=== PATIENT | male | born 1975 | race Two or more races ===

== ENCOUNTER 2018-07-24 20:33 | Emergency (ER) | payer SELFPAY ==
[~2018-07-24] VITALS: Ht 182.9 cm; Wt 95.7 kg
[2018-07-24] MEDS ORDERED: methylPREDNISolone SOD SUCC 125 MG/2ML VIAL IV ONE (22:30)
[2018-07-24] MEDS ORDERED: ALBUTEROL FS 2.5 MG/3 ML VIAL.NEB CONTNEB ONE (22:30)
[2018-07-24] MEDS ORDERED: IPRATROPIUM NEB FS 0.5 MG/2.5 ML AMPUL.NEB NEB ONE (22:30)
[2018-07-24] MEDS ORDERED: methylPREDNISolone SOD SUCC 125 MG/2ML VIAL ONE (22:32)
--- NOTE | 2018-07-24 22:35 | NUR ---
BIB SELF FROM HOME. AAOX4. AMBULATORY. C/O SOB X 2WEEKS WITH NON PRODUCTIVE COUGH. PT TO ER BED 11. PLACED ON PULSE OX. AWAITING MD FOR EVAL.
[2018-07-24] MEDS ORDERED: ALBUTEROL FS 2.5 MG/3 ML VIAL.NEB ONE (22:37)
[2018-07-24] MEDS ORDERED: IPRATROPIUM NEB FS 0.5 MG/2.5 ML AMPUL.NEB ONE (22:37)
[2018-07-25 01:19] VITALS: BP 151/96
--- NOTE | 2018-07-25 01:19 | NUR ---
Patient discharged to home in stable condition. Written and verbal after care instructions given. Patient verbalizes understanding of instruction.IV removed. Catheter intact and site benign. Pressure and 4x4 applied to site. No bleeding noted.Pt ambulatory with a steady gait
== END 2018-07-25 01:21 | disposition home or self-care (01) ==
LOC: ER 20:46
DX: J45.901 Unspecified asthma with (acute) exacerbation (principal); R94.31 Abnormal electrocardiogram [ECG] [EKG]; I10 Essential (primary) hypertension
CPT/HCPCS: 71045; 93005 ×2; 94640; 96374; 99283; J2930

== ENCOUNTER 2019-03-02 06:17 | Emergency (ER) | payer OTHER ==
[~2019-03-02] VITALS: Ht 185.4 cm; Wt 97.5 kg
[2019-03-02 06:25] VITALS: BP 163/87
--- NOTE | 2019-03-02 06:31 | NUR ---
BIBS FROM HOME TO ER BED 11. AAOX4. NO RESP DISTRESS NOTED, BREATHING EVEN ADN UNLABORED. AMBULATORY. C/O OF PAINFUL SWALLOWING. PT REPORTS THAT HE WOKE UP @ 6AM COUGHING WITH A DRY PAINFUL THROAT AND DIFFICULT TO SWALLOW AND TALK. PT REPORTS A QUARTER SIZE BRIGHT RED BLOOD TINGED SPUTUM. PT REPORTS PAIN 5/10. AWAITING MD FOR EVAL.
--- NOTE | 2019-03-02 07:10 | NUR ---
RAPID STREP SWAB DONE
--- NOTE | 2019-03-02 07:25 | NUR ---
REPORT GIVEN TO DAVID ZARATE FOR [facility]
[2019-03-02] MEDS ORDERED: IBUPROFEN 600 MG TABLET PO ONE ×2 (08:17→08:30)
[2019-03-02] MEDS ORDERED: predniSONE 10 MG TABLET ONE (08:17)
[2019-03-02] MEDS ORDERED: predniSONE 20 MG TABLET ONE (08:18)
[2019-03-02] MEDS ORDERED: predniSONE 50 MG TABLET PO ONE (08:30)
--- NOTE | 2019-03-02 08:32 | NUR ---
Patient discharged to home in stable condition. Written and verbal after care instructions given. Patient verbalizes understanding of instruction.
== END 2019-03-02 08:35 | disposition home or self-care (01) ==
LOC: ER 06:20
DX: J02.9 Acute pharyngitis, unspecified (principal); B95.0 Streptococcus, group A, as the cause of diseases classified elsewhere; I10 Essential (primary) hypertension; J45.909 Unspecified asthma, uncomplicated
CPT/HCPCS: 86403-TC; 87070-TC

== ENCOUNTER 2019-05-18 11:55 | Emergency (ER) | payer OTHER ==
[~2019-05-18] VITALS: Ht 182.9 cm; Wt 99.8 kg
--- NOTE | 2019-05-18 12:10 | NUR ---
COUGH AND CONGESTION, PERIODIC HEARTBURN W/ SOME MEALS X 1 WEEK. PATIENT A/OX4, BREATHING EVEN AND UNLABORED, NO SOB NOTED.
[2019-05-18] MEDS ORDERED: predniSONE 20 MG TABLET ONE (12:26)
[2019-05-18] MEDS ORDERED: predniSONE 20 MG TABLET PO ONE (12:30)
[2019-05-18] MEDS ORDERED: IPRATROPIUM NEB FS 0.5 MG/2.5 ML AMPUL.NEB NEB ONE ×2 (12:30→13:30)
[2019-05-18] MEDS ORDERED: ALBUTEROL FS 2.5 MG/3 ML VIAL.NEB NEB ONE (12:30)
[2019-05-18] MEDS ORDERED: ALBUTEROL FS 2.5 MG/3 ML VIAL.NEB ONE ×2 (12:36→13:10)
[2019-05-18] MEDS ORDERED: IPRATROPIUM NEB FS 0.5 MG/2.5 ML AMPUL.NEB ONE ×2 (12:36→13:10)
[2019-05-18 12:41] LABS: BASOPHILS # (AUTO) 0.1 /CMM (0.0-0.2); EOSINOPHILS % (AUTO) 6.1 % (0.0-6.0); HEMATOCRIT 54 % (39-51); HEMOGLOBIN 18.1 g/dL (13.5-17.5); LYMPHOCYTES # (AUTO) 1.6 /CMM (0.8-4.8); LYMPHOCYTES % (AUTO) 18.3 % (20.0-44.0); MEAN CORPUSCULAR HGB CONC 33 g/dl (31.0-36.0); MEAN CORPUSCULAR VOLUME 84 fL (80-96); MONOCYTES # (AUTO) 0.5 /CMM (0.1-1.30); MONOCYTES % (AUTO) 5.6 % (2.0-12.0); PLATELET COUNT (AUTO) 206 /CMM (150-450); RED BLOOD CELL COUNT(AUTO) 6.45 MIL/uL (4.5-6.0); WHITE BLOOD COUNT (AUTO) 8.6 K/uL (4.3-11.0)
[2019-05-18 12:51] LABS: CALCIUM, SERUM 8.8 mg/dL (8.5-10.1); CARBON DIOXIDE 26 mmol/L (21-32); CHLORIDE 107 mmol/L (98-107); CREATININE 1.1 mg/dL (0.6-1.3); GLUCOSE 95 mg/dL (74-106); POTASSIUM 4.2 mmol/L (3.5-5.1); SODIUM SERUM 142 mmol/L (136-145); UREA NITROGEN, BLOOD 16 mg/dL (7-18)
[2019-05-18] MEDS ORDERED: ALBUTEROL FS 2.5 MG/3 ML VIAL.NEB CONTNEB ONE (13:30)
--- NOTE | 2019-05-18 14:00 | NUR ---
MEI SMITH AT BEDSIDE.
[2019-05-18 14:19] LABS: EOSINOPHILS % (MANUAL) 6 % (0-4); LYMPHOCYTES % (MANUAL) 24 % (16-48); MONOCYTES % (MANUAL) 1 % (0-11.0); NEUTROPHILS % (MANUAL) 69 (42-76)
--- NOTE | 2019-05-18 14:20 | NUR ---
PATIENT A/OX4, AMBULATORY WITH STEADY GAIT, BREATHING EVEN AND UNLABORED, NO SOB NOTED, NEEDS ATTENDED, KEPT COMFORTABLE. Patient discharged to home in stable condition. Written and verbal after care instructions given. Patient verbalizes understanding of instruction.
[2019-05-18 14:22] VITALS: BP 148/105
== END 2019-05-18 14:23 | disposition home or self-care (01) ==
LOC: ER 11:59
DX: J45.901 Unspecified asthma with (acute) exacerbation (principal); K21.9 Gastro-esophageal reflux disease without esophagitis; I16.0 Hypertensive urgency; R51 Headache; I10 Essential (primary) hypertension
CPT/HCPCS: 36415; 71045; 80048; 84484; 85025; 93005; 94640; 94644; 99285; J7512

== ENCOUNTER 2019-08-31 11:20 | Emergency (ER) | payer OTHER ==
[~2019-08-31] VITALS: Ht 182.9 cm; Wt 99.8 kg
[2019-08-31 11:49] VITALS: BP 145/87
[2019-08-31] MEDS ORDERED: KETOROLAC TROMETHAMINE INJ 30 MG/ML VIAL IM ONE (12:30)
[2019-08-31] MEDS ORDERED: KETOROLAC TROMETHAMINE 15 MG/ML VIAL ONE (12:48)
--- NOTE | 2019-08-31 13:04 | NUR ---
Patient discharged to home in stable condition. Written and verbal after care instructions given. Patient verbalizes understanding of instruction.
== END 2019-08-31 13:05 | disposition home or self-care (01) ==
LOC: ER 11:25
DX: H92.01 Otalgia, right ear (principal); K04.7 Periapical abscess without sinus; I10 Essential (primary) hypertension; J45.909 Unspecified asthma, uncomplicated
CPT/HCPCS: 96372; 99283; J1885

== ENCOUNTER 2024-06-24 12:18 | Emergency (ER) | payer OTHER ==
[~2024-06-24] VITALS: Ht 182.9 cm; Wt 97.5 kg
[2024-06-24 12:51] LABS: BASOPHILS # (AUTO) 0.1 K/uL (0.0-0.2); BASOPHILS % (AUTO) 1.3 % (0.0-2.0); EOSINOPHILS # (AUTO) 0.6 K/uL (0.0-0.7); EOSINOPHILS % (AUTO) 5.5 % (0.0-6.0); HEMATOCRIT 46 % (39-51); HEMOGLOBIN 16.2 g/dL (13.5-17.5); LYMPHOCYTES % (AUTO) 9.9 % (20.0-44.0); MEAN CORPUSCULAR HEMOGLOBIN 29 PG (26.0-33.0); MEAN CORPUSCULAR HGB CONC 35 g/dl (31.0-36.0); MEAN CORPUSCULAR VOLUME 83 fL (80-96); MONOCYTES # (AUTO) 0.5 K/uL (0.1-1.30); MONOCYTES % (AUTO) 5.3 % (2.0-12.0); NEUTROPHILS # (AUTO) 8.1 K/uL (1.8-8.9); PLATELET COUNT (AUTO) 237 K/uL (150-450); RED BLOOD CELL COUNT(AUTO) 5.58 MIL/uL (4.5-6.0); RED CELL DISTRIBUTION WIDTH 14.6 % (11.5-15.0); WHITE BLOOD COUNT (AUTO) 10.3 K/uL (4.3-11.0)
[2024-06-24] MEDS: INSULIN REGULAR, HUMAN 100 UNIT/ML 10 ML VIAL IV ONE (12:56)
[2024-06-24] MEDS ORDERED: methylPREDNISolone SOD SUCC 125 MG/2ML VIAL ONE (12:57)
[2024-06-24] MEDS ORDERED: ALBUTEROL FS 2.5 MG/3 ML VIAL.NEB NEB ONE (13:00)
[2024-06-24] MEDS: methylPREDNISolone SOD SUCC 125 MG/2ML VIAL IV ONE (13:01)
[2024-06-24 13:11] LABS: CALCIUM, SERUM 9.5 mg/dL (8.5-10.1); CARBON DIOXIDE 31 mmol/L (21-32); CHLORIDE 102 mmol/L (98-107); CREATININE 1.1 mg/dL (0.6-1.3); GLUCOSE 93 mg/dL (74-106); POTASSIUM 3.4 mmol/L (3.5-5.1); SODIUM SERUM 139 mmol/L (136-145); UREA NITROGEN, BLOOD 13 mg/dL (7-18)
[2024-06-24] MEDS ORDERED: ALBUTEROL FS 2.5 MG/3 ML VIAL.NEB ONE (13:16)
[2024-06-24] MEDS ORDERED: IPRATROPIUM NEB FS 0.5 MG/2.5 ML AMPUL.NEB ONE (13:16)
[2024-06-24 13:22] VITALS: O2SAT 97
[2024-06-24] MEDS: ALBUTEROL FS 2.5 MG/3 ML VIAL.NEB NEB ONE (13:22)
[2024-06-24] MEDS: IPRATROPIUM NEB FS 0.5 MG/2.5 ML AMPUL.NEB NEB ONE (13:22)
[2024-06-24] MEDS ORDERED: ALBU18HF2 INH (13:35)
[2024-06-24] MEDS ORDERED: PRED20TA PO (13:35)
[2024-06-24 14:23] VITALS: O2SAT 100; O2SAT 99
[2024-06-24 15:04] VITALS: BP 128/81; TEMP 98.8; O2SAT 100
== END 2024-06-24 15:04 | disposition home or self-care (01) ==
LOC: ER 12:21
DX: J45.901 Unspecified asthma with (acute) exacerbation (principal); R07.89 Other chest pain; I10 Essential (primary) hypertension; Z79.52 Long term (current) use of systemic steroids
CPT/HCPCS: 99285; 96374; 71045; 93005 ×2; 85025; 80048; 36415; 84484 ×2; 94644; J2919

== ENCOUNTER 2024-09-02 11:24 | Emergency (ER) | payer OTHER ==
[~2024-09-02] VITALS: Ht 182.9 cm; Wt 95.3 kg
[~2024-09-02 11:24] MED LIST: ALBU18HF2 INH; PRED20TA PO
[2024-09-02 11:42] LABS: APPEARANCE,URINE CLEAR (CLEAR); BILIRUBIN,URINE Negative (NEGATIVE); BLOOD, URINE Trace-intact Ery/uL (NEGATIVE); COLOR,URINE YELLOW (YELLOW); KETONES,URINE Negative (NEGATIVE); LEUKOCYTE ESTERASE ,URINE Negative (NEGATIVE); PH,URINE 5.5 (5.0-8.0); PROTEIN,URINE 30 mg/dl (NEGATIVE); UGLUCOSE Negative (NEGATIVE); UROBILINOGEN,URINE 0.2 EU/dL (0.2)
[2024-09-02 11:44] LABS: NITRITE, URINE NEGATIVE (NEGATIVE)
[2024-09-02 11:51] LABS: BASOPHILS # (AUTO) 0.2 K/uL (0.0-0.2); BASOPHILS % (AUTO) 1.9 % (0.0-2.0); EOSINOPHILS # (AUTO) 0.7 K/uL (0.0-0.7); EOSINOPHILS % (AUTO) 7.6 % (0.0-6.0); HEMATOCRIT 46 % (39-51); LYMPHOCYTES # (AUTO) 2.1 K/uL (0.8-4.8); LYMPHOCYTES % (AUTO) 24.4 % (20.0-44.0); MEAN CORPUSCULAR HEMOGLOBIN 28 PG (26.0-33.0); MEAN CORPUSCULAR HGB CONC 35 g/dl (31.0-36.0); MEAN CORPUSCULAR VOLUME 82 fL (80-96); MONOCYTES # (AUTO) 0.6 K/uL (0.1-1.30); MONOCYTES % (AUTO) 6.6 % (2.0-12.0); NEUTROPHILS # (AUTO) 5.1 K/uL (1.8-8.9); NEUTROPHILS % (AUTO) 59.5 % (43.0-81.0); PLATELET COUNT (AUTO) 206 K/uL (150-450); RED BLOOD CELL COUNT(AUTO) 5.65 MIL/uL (4.5-6.0); RED CELL DISTRIBUTION WIDTH 13.6 % (11.5-15.0); WHITE BLOOD COUNT (AUTO) 8.6 K/uL (4.3-11.0)
[2024-09-02] MEDS ORDERED: KETOROLAC TROMETHAMINE 15 MG/ML VIAL ONE (11:51)
[2024-09-02 11:55] LABS: ADD URINE CULTURE NO; BACTERIA,URINE Few /HPF (None Seen); RBC,URINE 0-2 /HPF (0-2); SQUAMOUS EPITHELIAL CELL,UR Few /HPF (None Seen); WBC,URINE 0-2 /HPF (0-3)
[2024-09-02 11:58] LABS: CALCIUM, SERUM 8.7 mg/dL (8.5-10.1); CREATININE 1.4 mg/dL (0.6-1.3); POTASSIUM 3.1 mmol/L (3.5-5.1)
[2024-09-02] MEDS: KETOROLAC TROMETHAMINE 15 MG/ML VIAL IV ONE (11:58)
[2024-09-02 12:04] LABS: ALBUMIN 3.6 g/dL (3.4-5.0); BILIRUBIN,DIRECT 0.1 mg/dL (0.0-0.2); BILIRUBIN,TOTAL 0.5 mg/dL (0.2-1.0); TOTAL PROTEIN, SERUM 7.8 g/dL (6.4-8.2)
[2024-09-02] MEDS ORDERED: TAMS-12 PO (13:19)
[2024-09-02] MEDS ORDERED: TAMSULOSIN 0.4 MG CAP.SR.24H ONE (13:20)
[2024-09-02] MEDS: TAMSULOSIN 0.4 MG CAP.SR.24H PO ONE (13:20)
[2024-09-02 14:14] VITALS: BP 125/82; TEMP 98.6; O2SAT 98
== END 2024-09-02 14:16 | disposition home or self-care (01) ==
LOC: ER 11:26
DX: N20.0 Calculus of kidney (principal); I10 Essential (primary) hypertension; J45.909 Unspecified asthma, uncomplicated; Z79.52 Long term (current) use of systemic steroids; Z79.899 Other long term (current) drug therapy
CPT/HCPCS: 99285; 74176; 96374; 85025; 80048; 87086; 83690; 80076; 81001; 36415; J1885